=== PATIENT | male | born 1950 | race Caucasian/White ===

== ENCOUNTER 2018-01-20 06:07 | Outpatient (CLI) | payer MEDICARE ==
[~2018-01-20] VITALS: Ht 170.2 cm; Wt 77.1 kg
[2018-01-20] MEDS ORDERED: AMLO5TAB2 PO (11:30)
[2018-01-20] MEDS ORDERED: INSU100V6 SQ (11:30)
[2018-01-20] MEDS ORDERED: METF500T5 PO (11:30)
[2018-01-20] MEDS ORDERED: GEMF600T4 PO (11:30)
[2018-01-20] MEDS ORDERED: LISI1TAB6 PO (11:30)
[2018-01-31] MEDS ORDERED: ACHD5005 PO (13:41)
== END 2018-01-20 11:40 ==
LOC: PREOP 06:07
PROVIDERS: ATTEND Surgery
DX: Z01.818 Encounter for other preprocedural examination (principal); R19.7 Diarrhea, unspecified; K40.90 Unilateral inguinal hernia, without obstruction or gangrene, not specified as recurrent; Z86.010 Personal history of colon polyps

== ENCOUNTER 2018-01-27 05:29 | Outpatient (CLI) | payer MEDICARE ==
[~2018-01-27] VITALS: Ht 170.2 cm; Wt 77.1 kg
[~2018-01-27 05:29] MED LIST: AMLO5TAB2 PO; GEMF600T4 PO; INSU100V6 SQ; LISI1TAB6 PO; METF500T5 PO
[2018-01-27 09:26] LABS: BASOPHILS % (AUTO) 1 % (0-10); EOSINOPHILS # (AUTO) 0.2 10^3/uL (0.0-0.3); EOSINOPHILS % (AUTO) 3 % (0-10); HEMATOCRIT 37 % (40-54); HEMOGLOBIN 12.9 G/DL (13.3-17.7); LYMPHOCYTES # (AUTO) 2.3 X 10^3 (1.0-4.0); LYMPHOCYTES % (AUTO) 27 % (12-44); MEAN CORPUSCULAR HEMOGLOBIN 30 PG (25-34); MEAN CORPUSCULAR HGB CONC 35 G/DL (32-36); MEAN CORPUSCULAR VOLUME 87 FL (80-99); MEAN PLATELET VOLUME 10.5 FL (7.4-10.4); MONOCYTES # (AUTO) 0.6 X 10^3 (0.0-1.0); MONOCYTES % (AUTO) 7 % (0-12); NEUTROPHILS # (AUTO) 5.4 X 10^3 (1.8-7.8); NEUTROPHILS % (AUTO) 63 % (42-75); PLATELET COUNT 288 10^3/uL (130-400); RED BLOOD COUNT 4.29 10^6/uL (4.35-5.85); RED CELL DISTRIBUTION WIDTH 14.6 % (10.0-14.5); WHITE BLOOD COUNT 8.5 10^3/uL (4.3-11.0)
[2018-01-27 09:45] LABS: ALANINE AMINOTRANSFERASE 27 U/L (0-55); ALBUMIN 3.6 GM/DL (3.2-4.5); ALKALINE PHOSPHATASE 91 U/L (40-136); BILIRUBIN,TOTAL 0.4 MG/DL (0.1-1.0); BUN/CREATININE RATIO 17; CALCIUM 9.2 MG/DL (8.5-10.1); CARBON DIOXIDE 25 MMOL/L (21-32); CHLORIDE 109 MMOL/L (98-107); CREATININE SERUM 0.64 MG/DL (0.60-1.30); GFR ESTIMATED > 60; GLUCOSE 85 MG/DL (70-105); POTASSIUM 3.9 MMOL/L (3.6-5.0); SODIUM 141 MMOL/L (135-145); TOTAL PROTEIN 6.7 GM/DL (6.4-8.2)
== END 2018-01-27 11:58 | disposition home or self-care (01) ==
LOC: PREOP 05:29
PROVIDERS: ATTEND Surgery
DX: Z01.812 Encounter for preprocedural laboratory examination (principal); Z11.2 Encounter for screening for other bacterial diseases; K40.90 Unilateral inguinal hernia, without obstruction or gangrene, not specified as recurrent
CPT/HCPCS: 36415; 80053; 85025; 87081

== ENCOUNTER 2018-01-27 07:36 | Day surgery (SDC) | payer MEDICARE ==
[2018-01-27 07:53] VITALS: BP 149/96
[2018-01-27] MEDS ORDERED: NS IV 500 ML 500 ML IV PRN (07:56)
[2018-01-27] MEDS ORDERED: NS IV 500 ML 500 ML ONE (07:59)
--- NOTE | 2018-01-27 08:24 | History & Physicial ---
History of Present Illness History of Present Illness Reason for visit/HPI To undergo surveillance colonoscopy. Has a personal history of polyps including a large, sessile right colon polyp requiring fabi-colectomy. Date of Admission 01/27/18 Date Seen by Provider: Jan 27, 2018 Time Seen by Provider: 08:21 I consulted on this patient on 01/27/18 08:21 Attending Physician Monik Agarwal MD Admitting Physician Joe Badillo DO Consult Allergies and Home Medications Allergies Coded Allergies: No Known Drug Allergies (Unverified , 01/20/18) Home Medications Amlodipine Besylate 5 Mg Tablet, 5 MG PO DAILY, (Reported) Gemfibrozil 600 Mg Tablet, 600 MG PO BID, (Reported) Insulin Glargine,Hum.rec.anlog 100 Unit/1 Ml Vial, 40 UNIT SQ HS, (Reported) Lisinopril/Hydrochlorothiazide 1 Each Tablet, 1 EACH PO DAILY, (Reported) Metformin HCl 500 Mg Tablet, 500 MG PO BID, (Reported) Patient Home Medication List Home Medication List Reviewed: Yes Past Dwxzmyp-Nxzftt-Hllich Hx Patient Social History Marrital Status: Employed/Student: retired Alcohol Use: Denies Use Recreational Drug Use: No Smoking Status: Former Smoker Former Smoker, Quit: Jan 21, 1984 Recent Foreign Travel: No Contact w/other who traveled: No Recent Hopitalizations: No Immunizations Up To Date Date of Pneumonia Vaccine: Apr 23, 2016 Seasonal Allergies Seasonal Allergies: No Surgeries Yes Bowel Surgery Respiratory No Cardiovascular Yes Hypertension Neurological No Reproductive System Hx Reproductive Disorders: No Sexually Transmitted Disease: No HIV/AIDS: No Genitourinary No Gastrointestinal Yes Diverticulosis, Chronic Diarrhea, Polyps Musculoskeletal Yes Arthritis Endocrine History of Endocrine Disorders: Yes Endocrine Disorders: Diabetes, Insulin dep HEENT Loss of Vision: Bilateral Hearing Impairment: Denies Cancer No Psychosocial History of Psychiatric Problem: No Integumentary History of Skin or Integumenta: No Blood Transfusions Adverse Reaction to a Blood Tr: No (N/A) Constitutional: no symptoms reported EENTM: no symptoms reported Respiratory: no symptoms reported Cardiovascular: no symptoms reported Gastrointestinal: see HPI Genitourinary: no symptoms reported Musculoskeletal: joint pain Skin: no symptoms reported Psychiatric/Neurological: No Symptoms Reported Physical Exam Vital Signs Vital Signs - First Documented 01/27/18 07:53 Temp 98.4 Pulse 66 Resp 18 B/P (MAP) 149/96 (113) Pulse Ox 97 Capillary Refill : Height, Weight, BMI Height: 5'7.00" Weight: 170lbs. 0.0oz. 77.758160mh; 26.6 BMI Method: General Appearance: No Apparent Distress Neck: Normal Inspection Respiratory: Lungs Clear Cardiovascular: Regular Rate, Rhythm Gastrointestinal: Non Tender, Soft, Hernia Rectal: Deferred Back: Normal Inspection Extremity: Normal Inspection Neurologic/Psychiatric: Alert, Oriented x3 Skin: Warm/Dry Assessment/Plan Assessment and Plan Gentleman with a personal history of polyps. Previous right colon resection. For surveillance colonoscopy. Right inguinal hernia, due to be repaired later this week. Admission Diagnosis Admission Status: Other (Outpt Proc) MONIK AGARWAL MD Jan 27, 2018 8:23 am
--- NOTE | 2018-01-27 08:24 | Conscious Sedation/ASA ---
Conscious Sedation Pre-Proced Time Reviewed: 08:24 ASA Class: 2 Airway Mallampati Classification: ([place] appropriate class) I. II. III, IV Lungs Heart ASA score ASA 1: a normal healthy patient ASA 2: a patient with a mild systemic disease (mid diabetes, controlled hypertension, obesity ASA 3: a patient with a severe systemic disease that limits activity (angina , COPD, prior Myocardial infarction) ASA 4: a patient with an incapacitating disease that is a constant threat to life (CHF, renal failure) ASA 5: a moribund patient not expected to survive 24 hrs. (ruptured aneurysm) ASA 6: a declared brain patient whose organs are being harvested. For emergent operations, add the letter E after the classification Grade 2 Sedation Plan: Discussed options with patient/fam Note The patient is an appropriate candidate to undergo the planned procedure, sedation, and anesthesia. The patient immediately re-assessed prior to indication. MONIK AGARWAL MD Jan 27, 2018 8:24 am
[2018-01-27] MEDS ORDERED: fentaNYL INJECTION 100 MCG/2 ML AMP ONE ×2 (09:05)
[2018-01-27] MEDS ORDERED: MIDAZOLAM 2 MG/2 ML (VERSED) VIAL ONE ×3 (09:05)
[2018-01-27] MEDS: fentaNYL INJECTION 100 MCG/2 ML AMP IVP PRN ×2 (09:10→09:14)
[2018-01-27] MEDS: MIDAZOLAM 2 MG/2 ML (VERSED) VIAL IVP PRN ×3 (09:13→09:19)
--- NOTE | 2018-01-27 09:34 | Endo Procedure Record ---
Endo Procedure Report Date of Procedure Last Colonoscopy: Yes (2016) Jan 27, 2018 Surgeon (s) MONIK AGARWAL MD Post Procedure/Op Diagnosis Very few diverticulae Procedure Performed Colonoscopy to ileocolic anastomosis Description of Procedure Anesthesia Type: Conscious Sedation Specimen(s) collected/removed None Description of the Procedure Indication for the procedure: This gentleman underwent right hemicolectomy to manage and large, sessile polyp of the ascending colon about a year ago. He is due to undergo repair of right internal hernia and possibly a ventral hernia. He came in for surveillance colonoscopy. Informed consent was obtained after reviewing the procedure in detail. Description of the procedure: He was placed in left lateral decubitus position and his vital signs were monitored. Conscious sedation was achieved using Versed and fentanyl. Digital rectal examination was unremarkable. The colonoscope was then introduced in the rectum and advanced to the ileo-colic anastomosis scope was then withdrawn slowly and the mucosa examined in a systematic fashion. Findings: Very few sigmoid diverticulae. No recurrent polyps were found He tolerated the procedure well and was taken back to the nursing area in a stable condition. Impression: Previous sessile polyp of the right colon. No recurrence. Recommend repeating 2 years. MONIK AGARWAL MD Jan 27, 2018 9:33 am
--- NOTE | 2018-01-27 09:35 | Discharge Inst-Simple/Standard ---
Discharge Inst-Standard Discharge Medications New, Converted or Re-Newed RX: Other Patient Instructions/Follow Up Plan of Care/Instructions/FU: To return for hernia surgery as scheduled Activity as Tolerated: Yes Discharge Diet: ADA Diet MONIK AGARWAL MD Jan 27, 2018 9:35 am
[2018-01-27 09:55] VITALS: BP 137/72
[2018-01-27 10:25] VITALS: BP 145/83
[2018-01-27 10:40] VITALS: BP 145/83
== END 2018-01-27 11:33 | disposition home or self-care (01) ==
LOC: ENDO 07:36
PROVIDERS: ATTEND Surgery
DX: K57.30 Diverticulosis of large intestine without perforation or abscess without bleeding (principal); Z87.891 Personal history of nicotine dependence; I10 Essential (primary) hypertension; E11.9 Type 2 diabetes mellitus without complications; Z79.4 Long term (current) use of insulin; Z79.899 Other long term (current) drug therapy
CPT/HCPCS: 36415; 86021; 86671

== ENCOUNTER 2018-01-31 07:30 | Day surgery (SDC) | payer MEDICARE ==
[2018-01-31] VITALS (9 sets, daily range): BP systolic 112–161; BP diastolic 62–97
[~2018-01-31] VITALS: Ht 170.2 cm; Wt 77.1 kg
[2018-01-31] MEDS ORDERED: ceFAZolin 2 GM IV Premixed 50 ML IV ONE (07:45)
[2018-01-31] MEDS: LACTATED RINGERS 1,000 ML IV PRN ×3 (07:50→12:42)
--- NOTE | 2018-01-31 07:58 | Progress Note-Pre Operative ---
Pre-Operative Progress Note H&P Reviewed The H&P was reviewed, patient examined and no changes noted. Date Seen by Provider: Jan 27, 2018 Time Seen by Provider: 08:55 Date H&P Reviewed: Jan 31, 2018 Time H&P Reviewed: 07:57 Pre-Operative Diagnosis: Right inguinal hernia MONIK AGARWAL MD Jan 31, 2018 7:58 am
[2018-01-31] MEDS ORDERED: FAMOTIDINE 20MG/2ML IV (PEPCID) IV ONE (08:00)
[2018-01-31] MEDS ORDERED: ONDANSETRON 4 MG/2 ML (SDV) Z0FRAN IV ONE (08:00)
[2018-01-31] MEDS ORDERED: CATHETER FLUSH 10 ML SYR IV PRN (08:15)
[2018-01-31] MEDS ORDERED: proPOfol 200 MG/20 ML (DIPRIVAN) VIAL IV ONE (09:02)
[2018-01-31] MEDS ORDERED: SEVOFLURANE (ULTANE) 15 ML INHAL SOLN ONE ×10 (09:02→12:15)
[2018-01-31] MEDS ORDERED: LIDOCAINE PF 2% 5 ML (XYLOCAINE) VIAL ONE (09:02)
[2018-01-31] MEDS ORDERED: ROCURONIUM 10 MG/ML 5 ML SYRINGE IV ONE ×2 (09:02→11:21)
[2018-01-31] MEDS ORDERED: fentaNYL INJECTION 100 MCG/2 ML AMP ONE ×3 (09:03→12:34)
[2018-01-31] MEDS ORDERED: MIDAZOLAM 2 MG/2 ML (VERSED) VIAL ONE (09:03)
[2018-01-31] MEDS ORDERED: BUP/EPI 0.5% 1:200,000 (SENSORCAINE) 30 ML VIAL ONE (09:27)
[2018-01-31] MEDS ORDERED: ONDANSETRON 4 MG/2 ML (SDV) Z0FRAN IVP PRN ×3 (09:30→16:15)
[2018-01-31] MEDS ORDERED: HYDROmorphone 1 MG/ML (DILAUDID) 1 ML SYRINGE IV PRN (09:30)
[2018-01-31] MEDS ORDERED: morphine INJ 10 MG/ML 1ML (SYR OR VIAL) IVP PRN (09:30)
[2018-01-31] MEDS ORDERED: MEPERIDINE (DEMEROL) INJ 50 MG/ML IVP PRN ×3 (09:30→13:00)
[2018-01-31] MEDS ORDERED: GLYCOPYRROLATE 0.2 MG/ML (ROBINUL) 2 ML VIAL ONE ×2 (10:21→12:26)
[2018-01-31] MEDS ORDERED: ONDANSETRON 4 MG/2 ML (SDV) Z0FRAN ONE ×2 (10:21→13:36)
[2018-01-31] MEDS ORDERED: NEOSTIGMINE 1 MG/ML 5 ML SYRINGE ONE (12:26)
[2018-01-31] MEDS ORDERED: fentaNYL INJECTION 100 MCG/2 ML AMP IVP PRN ×2 (13:00→17:45)
[2018-01-31] MEDS ORDERED: PROMETHAZINE INJ 25 MG/ML (PHENERGAN) AMP IVP PRN ×3 (13:00→14:45)
[2018-01-31] MEDS ORDERED: HYDROmorphone 1 MG/ML (DILAUDID) 1 ML SYRINGE ONE (13:08)
[2018-01-31] MEDS: HYDROmorphone 1 MG/ML (DILAUDID) 1 ML SYRINGE IV PRN ×2 (13:14→13:24)
[2018-01-31] MEDS ORDERED: ACHD5005 PO (13:41)
--- NOTE | 2018-01-31 13:42 | Discharge Inst-Simple/Standard ---
Discharge Inst-Standard Discharge Medications New, Converted or Re-Newed RX: RX on Chart Patient Instructions/Follow Up Plan of Care/Instructions/FU: Dressings off in 48 hours. Follow-up in 4 weeks Activity as Tolerated: No Goal: No lifting over 10 pounds Discharge Diet: No Restrictions MONIK AGARWAL MD Jan 31, 2018 1:42 pm
--- NOTE | 2018-01-31 13:53 | Operative Report ---
Operative Report Date of Procedure/Surgery Jan 31, 2018 Surgeon (s) MONIK AGARWAL MD Speech Therapist (s): N/A Post-Operative Diagnosis Same Procedure Performed Robotic assisted repair of right inguinal hernia with mesh Description of Procedure Anesthesia Type: General Estimated blood loss (mL): Minimal Specimen(s) collected/removed Hernia contents and the sac Description of the Procedure Indication for the procedure: This gentleman presented with a symptomatically, large, right inguinal hernia. He was offered repair using minimally invasive technique with robotic assistance and mesh reinforcement. Informed consent was obtained after reviewing the operative details and complications of hematoma, infection of the mesh, recurrence of the hernia and cardiorespiratory respiratory dysfunction. Description of the procedure: He was placed supine on the operative table and general anesthesia induced using an endotracheal tube. Ancef was administered intravenously as prophylaxis against infection. Sequential compression devices were placed around his legs, to minimize the risk of venous thrombosis. Harris catheter was placed to decompress the bladder during surgery. Removed at the end of the operation. Abdomen was prepared and draped in the usual sterile manner. Due to previous right colon resection using a midline incision, I elected to establish pneumoperitoneum using a Veress needle introduced over the left subcostal margin. A 12 mm trocar was placed and anatomy visualized using the high definition, 3-dimensional laparoscope associated with da [employer] system. Omentum was adherent to the undersurface of the midline incision. Under direct view, I placed an 8 mm trocar over the left-sided abdomen first and took down adhesions by blunt dissection.. A large indirect right inguinal hernia was confirmed. Subsequently, another 8 mm trocar was placed over the right side abdomen and the patient turned and steep Trendelenburg position, to displace loops of bowel out of the pelvis. The robotic system was then docked in place. Due to malfunction of the robotic arm, there was delay in, singly operation. Subsequently, it is addressed and we were able to proceed. Peritoneum was incised laterally, entering the pre-peritoneal space. A large hernia with a sac was encountered and reduced out of the inguinal canal. Dissection was continued medially, exposing Mahad's ligament. The cord structures including the vas deferens where protected. The defect was rather large, measuring about 5 cm in diameter. Therefore, transversalis fascia was approximated using a 20V LOC suture with robotic assistance, without constricting the cord structures. A large polypropylene mesh of low-profile variety measuring 16 x 10 cm in diameter was chosen for reinforcement. It was introduced into the preperitoneal space and sutured to Mahad's ligament and the lateral abdominal muscles 0 Vicryl sutures robotic assistance. Abdominal pressure was then reduced to 11 mmHg, to facilitate closing the peritoneum without any tension. This was accomplished using a combination of 20V LOC and 2-0 Vicryl suture with robotic assistance. Extraperitoneal fat and the hernia sac were placed in Endo Catch bag and removed via the left upper quadrant trocar site. The fascia over the supraumbilical incision and the one over the left upper quadrant where closed using #1 Vicryl. Skin incisions were closed using 4-0 Vicryl, in a subcuticular fashion. 0.5 percent Marcaine with epinephrine was infiltrated along the incisions both preemptively and at the conclusion of the operation. He tolerated the procedure well, was extubated in the operating room and taken to recovery room in a stable condition. Findings of the Procedure See op report Allergies and Home Medications Allergies Coded Allergies: No Known Drug Allergies (Verified , 01/27/18) Home Medications Amlodipine Besylate 5 Mg Tablet, 5 MG PO DAILY, (Reported) Gemfibrozil 600 Mg Tablet, 600 MG PO BID, (Reported) Hydrocodone Bit/Acetaminophen 1 Tab Tab, 1-2 TAB PO 4-6HR PRN for PAIN Prescribed by: MONIK AGARWAL on 01/31/18 1341 Insulin Glargine,Hum.rec.anlog 100 Unit/1 Ml Vial, 40 UNIT SQ HS, (Reported) Lisinopril/Hydrochlorothiazide 1 Each Tablet, 1 EACH PO DAILY, (Reported) Metformin HCl 500 Mg Tablet, 500 MG PO BID, (Reported) Patient Home Medication List Home Medication List Reviewed: Yes MONIK AGARWAL MD Jan 31, 2018 1:53 pm
[2018-01-31] MEDS ORDERED: PROMETHAZINE INJ 25 MG/ML (PHENERGAN) AMP ONE (14:30)
[2018-01-31] MEDS ORDERED: PROMETHAZINE INJ 25 MG/ML (PHENERGAN) AMP IVP ONE (14:45)
[2018-01-31] MEDS ORDERED: lisINopril 10 MG (PRINIVIL) TABLET PO NR (16:15)
[2018-01-31] MEDS: inSUlin ASPART (NovoLOG) 1 UNIT/0.01 ML (CHARGE PER UNIT) SC SCH (20:18)
[2018-01-31] MEDS: HYDROcodone/APAP 5 MG/325 MG (LORTAB) TAB PO PRN (20:18)
[2018-01-31] MEDS ORDERED: inSUlin DETERMIR 1 UNIT/0.01 ML (LEVEMIR) CHARGE PER UNIT SQ SCH (21:00)
[2018-02-01 00:18] VITALS: BP 134/77
[2018-02-01] MEDS: HYDROcodone/APAP 5 MG/325 MG (LORTAB) TAB PO PRN ×2 (03:47→10:13)
[2018-02-01 04:00] VITALS: BP 132/81
[2018-02-01] MEDS: inSUlin ASPART (NovoLOG) 1 UNIT/0.01 ML (CHARGE PER UNIT) SC SCH ×2 (06:08→12:05)
[2018-02-01] MEDS ORDERED: GEMFIBROZIL 600 MG (LOPID) TAB PO SCH (07:00)
[2018-02-01 08:00] VITALS: BP 138/79
[2018-02-01] MEDS ORDERED: amLODIPine 5 MG (NORVASC) TAB PO SCH (09:00)
[2018-02-01] MEDS ORDERED: lisINopril 10 MG (PRINIVIL) TABLET PO SCH (09:00)
[2018-02-01] MEDS ORDERED: HYDROCHLOROTHIAZIDE 12.5 MG (HCTZ) CAP PO SCH (09:00)
--- NOTE | 2018-02-01 12:35 | Progress Note-Standard ---
Standard Progress Note Progress Notes/Assess & Plan Date Seen by Provider: Feb 01, 2018 Time Seen by Provider: 11:45 Progress/Assessment & Plan Pain control adequate. Able to void spontaneously. Incisions dry. No scrotal hematoma. Could be discharged home Final Diagnosis Right inguinal hernia MONIK AGARWAL MD Feb 01, 2018 12:35 pm
== END 2018-02-01 12:20 | disposition home or self-care (01) ==
LOC: SDC 07:30 → 4TH 16:35 → SDC 02-01 12:20
PROVIDERS: ATTEND Surgery
DX: K40.90 Unilateral inguinal hernia, without obstruction or gangrene, not specified as recurrent (principal); E11.9 Type 2 diabetes mellitus without complications; I10 Essential (primary) hypertension; Z87.891 Personal history of nicotine dependence; Z79.84 Long term (current) use of oral hypoglycemic drugs
CPT/HCPCS: 82962; 94664